=== PATIENT | male | born 1955 ===

== ENCOUNTER 2024-04-07 10:47 | Emergency (ER) | payer BC, MEDICARE, OTHER ==
[2024-04-07] MEDS: Lidocaine 2% 20 ML MDV INFILT ONE (11:10)
[2024-04-07] MEDS: Bacitracin Oint 1 GM U/D Packet TOP ONE (11:29)
== END 2024-04-07 11:39 | disposition home or self-care (01) ==
LOC: DL.ED 10:47
DX: S61.211A Laceration without foreign body of left index finger without damage to nail, initial encounter (principal); I10 Essential (primary) hypertension; W23.1XXA Caught, crushed, jammed, or pinched between stationary objects, initial encounter
CPT/HCPCS: 12001; 99282; A9270-GY; J3490